=== PATIENT | male | born 1985 | race Caucasian/White ===

== ENCOUNTER 2018-01-17 23:24 | Emergency (ER) | payer MEDICAID ==
[~2018-01-17] VITALS: Ht 167.6 cm; Wt 79.4 kg
[2018-01-18 00:17] LABS: Basophils # (auto) 0.1 uL; Basophils % (auto) 0.6 % (0.0-2.0); Eosinophils # (auto) 0.1 uL; Eosinophils % (auto) 0.7 % (0.0-7.0); Hematocrit 45.4 % (41.0-53.0); Lymphocytes % (auto) 20.3 % (10.0-50.0); Mean Corpuscular Hemoglobin 32.6 pg (28.0-32.0); Mean Corpuscular Hgb Conc. 35.1 g/dL (32.0-36.0); Mean Corpuscular Volume 92.9 fL (80.0-100.0); Monocytes # (auto) 0.4 uL; Monocytes % (auto) 4.4 % (0.0-12.0); Neutrophils # (auto) 7.2 uL; Nucleated Red Blood Cells % 0.1 %; Platelet Count (auto) 181 10^3/uL (140-450); Red Blood Cells 4.89 10^6/uL (4.5-5.90); Red Cell Distribution Width 13.3 % (11.8-14.3); White Blood Cell 9.7 10^3/uL (4.4-10.8)
[2018-01-18 00:36] LABS: Albumin 4.5 g/dL (3.4-5.0); Anion Gap 12 (5-15); Blood Urea Nitrogen 17 mg/dL (7-18); Calcium 8.9 mg/dL (8.5-10.1); Carbon Dioxide 19 mmol/L (21-32); Chloride 109 mmol/L (98-107); Glucose 123 mg/dL (74-106); Magnesium 2.4 mg/dL (1.6-2.6); Potassium 3.7 mmol/L (3.5-5.1); Sodium 140 mmol/L (136-145)
[2018-01-18 00:38] LABS: BUN/Creatinine Ratio 13.8; GFR African American 88 mL/min; GFR Non-African American 73 mL/min
[2018-01-18 00:43] LABS: Alanine Aminotransferase 50 U/L (16-61); Alkaline Phosphatase 52 U/L (45-117); Aspartate Aminotransferase 31 U/L (15-37); Bilirubin, Total 0.3 mg/dL (0.2-1.0); Total Protein 8.1 g/dL (6.4-8.2)
[2018-01-18 01:30] VITALS: BP 140/87
== END 2018-01-18 02:21 | disposition left against medical advice (07) ==
LOC: ER 23:34
DX: R55 Syncope and collapse (principal); R07.9 Chest pain, unspecified; Z53.21 Procedure and treatment not carried out due to patient leaving prior to being seen by health care provider
CPT/HCPCS: 36415; 71045; 80053; 83735; 84443; 84484; 85025; 93005

== ENCOUNTER 2019-01-17 06:30 | Emergency (ER) | payer MEDICAID ==
[~2019-01-17] VITALS: Ht 167.6 cm; Wt 86.2 kg
[2019-01-17 06:48] VITALS: BP 168/98
== END 2019-01-17 08:00 | disposition home or self-care (01) ==
LOC: ER 06:32
DX: H66.91 Otitis media, unspecified, right ear (principal); F17.210 Nicotine dependence, cigarettes, uncomplicated